=== PATIENT | male | born 1935 | race Caucasian/White ===

== ENCOUNTER 2017-08-16 11:04 | Inpatient (IN) | payer MEDICARE ==
[~2017-08-16] VITALS: Ht 157.5 cm; Wt 48.4 kg
[~2017-08-16 11:04] MED LIST: CLON0.5T PO; FURO40TA PO; ISOS60TA PO; LANTUS2P SQ; METF500T PO; METO100T9 PO; MULTTAB67 PO; OMEP40CA2 PO; SIMV40TA PO; TAMS0.4C4 PO
[2017-08-16 17:30] VITALS: BP 167/82; PULSE 92; RESP 20; TEMP 98; O2SAT 99
--- NOTE | 2017-08-16 18:07 | HHI.HP ---
HPI Service [facility] Hospitalists Primary Care Physician No Primary Care Physician Admission Diagnosis Diagnoses: Chief Complaint: Chest pain Dyspnea Travel History International Travel<30 Days: Yes Contact w/Intl Traveler <30 Da: Yes Name of Country Traveled to: [place] History of Present Illness Written by Ce Gonzalez PA-C acting as scribe for Dr. Bermudez on 08/16/17 at 18:07. This is an 81yo Tajik male with a known PMHX of known CAD, HTN, IDDM and previous CVA 6 mos ago who presents to [facility] with complaints of pressure like anterior chest pain and dyspnea x 1 day. He endorses associated nausea. He reports some chills yesterday but denies any cough or fever. Patient arrived here from [place] 2 days ago. He has a history of 3 vessel CAD diagnosed in 2007 and due to being a poor surgical candidate has been treated medically to date per 's report. He does not use oxygen at home. Patients also reports he's been losing weight despite having a good appetite. She does admit he is only able to eat soft foods due to ill fitting dentures. Patient denies any throat pain or difficulty with swallowing. Patient was hospitalized in [place] for unstable angina in January of this year. Per the patients , he did not undergo a cardiac catheterization. In the ED, patient has two elevated troponins 0.18 and 0.17. EKG revealed NSR with diffuse ST segment flattening. D Dimer slightly elevated at 0.84. CXR was concerning for PNA. Review of Systems Except as stated in HPI: all other systems reviewed are Neg Past Family Social History Past Medical History known hx of CAD treated with medical mgmt HTN DM, insulin dependent CVA 6 mos ago BPH GERD Past Surgical History Patient denies any previous surgeries Reported Medications Lantus Inj (Insulin Glargine) 1,000 Unit/10 Ml Vial 15 Units SQ HS Furosemide 40 Mg Tab 40 Mg PO DAILY Multiple Vitamin 1 Tab 1 Tab PO DAILY Tamsulosin (Tamsulosin HCl) 0.4 Mg Cap 0.4 Mg PO HS Simvastatin 40 Mg Tab 40 Mg PO HS Metoprolol Succinate ER 24 HR (Metoprolol Succinate) 100 Mg Tab 100 Mg PO HS Omeprazole 40 Mg Cap 40 Mg PO DAILY Metformin (Metformin HCl) 500 Mg Tab 500 Mg PO HS With a meal Isosorbide Mononitrate ER (Isosorbide Mononitrate) 60 Mg Tab 60 Mg PO DAILY Clonazepam 0.5 Mg Tab 0.5 Mg PO BID Allergies: Coded Allergies: Sulfa (Sulfonamide Antibiotics) (Verified Allergy, Severe, SWELLING, ) Active Ordered Medications Current Medications Medications (Trade) Dose Ordered Sig/Ta Route Start Time Stop Time Status Last Admin (KlonoPIN) 0.5 mg BID PO 08/16/17 21:00 UNV (Lantus Inj) 15 units HS SQ 08/16/17 21:00 UNV (Imdur) 60 mg DAILY PO 08/17/17 09:00 UNV (Flomax) 0.4 mg HS PO 08/16/17 21:00 UNV Non-Formulary Medication 100 mg HS PO 08/16/17 21:00 UNV Non-Formulary Medication 40 mg DAILY PO 08/17/17 09:00 UNV Non-Formulary Medication 40 mg HS PO 08/16/17 21:00 UNV Family History Both parents, CAD and DM Social History Patient denies any previous smoking history, alcohol consumption or illicit drug use. Physical Exam Vital Signs Vital Signs Date Time Temp Pulse Resp B/P (MAP) Pulse Ox O2 Delivery O2 Flow Rate FiO2 08/16/17 17:30 98.0 92 20 167/82 (110) 99 Physical Exam GENERAL: This is a thin frail elderly patient, in no apparent distress. Awake and alert. is at the bedside. SKIN: No rashes, ecchymoses or lesions. Cool and dry. HEAD: Atraumatic. Normocephalic. No temporal or scalp tenderness. EYES: Pupils equal round and reactive. Extraocular motions intact. No scleral icterus. No injection or drainage. ENT: Nose without bleeding, purulent drainage. Throat without erythema, tonsillar hypertrophy or exudate. Uvula midline. Airway patent. Absent dentition. NECK: Trachea midline. No JVD or lymphadenopathy. Supple, nontender, no meningeal signs. CARDIOVASCULAR: Regular rate and rhythm without murmurs, gallops, or rubs. RESPIRATORY: Diminished but clear to auscultation. Breath sounds equal bilaterally. No wheezes, rales, or rhonchi. GASTROINTESTINAL: Abdomen soft, non-tender, nondistended. No hepato-splenomegaly , or palpable masses. No guarding. MUSCULOSKELETAL: Extremities without clubbing, cyanosis, or edema. No joint tenderness, effusion, or edema noted. No calf tenderness. NEUROLOGICAL: Awake and alert. Able to move all extremities. Nonfocal. Normal speech. Caprini VTE Risk Assessment Caprini VTE Risk Assessment: Mod/High Risk (score >= 2) Caprini Risk Assessment Model Point Value = 1 Point Value = 2 Point Value = 3 Point Value = 5 Age 41-60 Minor surgery BMI > 25 kg/m2 Swollen legs Varicose veins or History of unexplained or recurrent spontaneous Oral contraceptives or hormone replacement Sepsis (< 1 month) Serious lung disease, including pneumonia (< 1 month) Abnormal pulmonary function Acute myocardial infarction Congestive heart failure (< 1 month) History of inflammatory bowel disease Medical patient at bed rest Age 61-74 Arthroscopic surgery Major open surgery (> 45 min) Laparoscopic surgery (> 45 min) Malignancy Confined to bed (> 72 hours) Immobilizing plaster cast Central venous access Age >= 75 History of VTE Family history of VTE Factor V Leiden Prothrombin [id number] Lupus anticoagulant Anticardiolipin antibodies Elevated serum homocysteine Heparin-induced thrombocytopenia Other congenital or acquired thrombophilia Stroke (< 1 month) Elective arthroplasty Hip, pelvis, or leg fracture Acute spinal cord injury (< 1 month) Prophylaxis Regimen Total Risk Factor Score Risk Level Prophylaxis Regimen 0-1 Low Early ambulation 2 Moderate Order ONE of the following: *Sequential Compression Device (SCD) *Heparin 5000 units SQ BID 3-4 Higher Order ONE of the following medications: *Heparin 5000 units SQ TID *Enoxaparin/Lovenox 40 mg SQ daily (WT < 150 kg, CrCl > 30 mL/min) *Enoxaparin/Lovenox 30 mg SQ daily (WT < 150 kg, CrCl > 10-29 mL/min) *Enoxaparin/Lovenox 30 mg SQ BID (WT < 150 kg, CrCl > 30 mL/min) AND/OR *Sequential Compression Device (SCD) 5 or more Highest Order ONE of the following medications: *Heparin 5000 units SQ TID (Preferred with Epidurals) *Enoxaparin/Lovenox 40 mg SQ daily (WT < 150 kg, CrCl > 30 mL/min) *Enoxaparin/Lovenox 30 mg SQ daily (WT < 150 kg, CrCl > 10-29 mL/min) *Enoxaparin/Lovenox 30 mg SQ BID (WT < 150 kg, CrCl > 30 mL/min) AND *Sequential Compression Device (SCD) Assessment and Plan Assessment and Plan 81yo Tajik male with a known PMHX of known CAD, HTN, IDDM and previous CVA 6 mos ago who presents to [facility] with complaints of pressure like anterior chest pain and dyspnea x 1 day. He endorses associated nausea. NSTEMI in patient with known CAD. Reportedly with 3 vessel disease but not a surgical candidate per History. - EKG personally reviewed showing NSR, diffuse ST segment flattening - Troponin 0.18 and 0.17 - Cycle cardiac enzymes and EKG - Consult Cardiology - continuous cardiac monitoring - ASA 325mg daily - Nitro SL prn chest pain - supplemental oxygen Hypertension - resume home dose of Isosorbide 60mg daily, Metoprolol 100mg po daily - hold Lasix for now, no e/o fluid overload on exam - monitor BP Dyspnea Suspect PNA - CXR personally reviewed showing left basilar consolidation possibly pneumonia - also concern for PE given recent travel, elevated D Dimer and hypoxia. Will order CTA for further evaluation and r/o PE. - Patient given Ceftriaxone and Azithromycin in the ED. Will continue. - supplemental oxygen - monitor respiratory status Weight loss - consult dynamic balancer set up worker - swallow evaluation (hx of CVA 6mos ago) Diabetes - hold home Metformin - resume home dose of Lantus 15u daily - accucheks - ISS - diabetic heart healthy diet HX of CVA 6 mos ago - continue ASA and statin daily BPH - resume home dose of Tamsulosin 0.4mg daily Dyslipidemia - resume home dose of statin therapy GERD - PPI DVT prophylaxis - Heparin sq This note was transcribed by siomara [Ce Gonzalez]. I, Dr. Rickey Bermudez personally performed the history, physical exam, and medical decision making; and confirmed the accuracy of the information in the transcribed note. Authenticated by Dr. Rickey Bermudez on 08/16/17 at 18:09. Discussed Condition With ED physician, patient, Physician Certification 2 Midnight Certification Type: Admission for Inpatient Services Order for Inpatient Services The services are ordered in accordance with Medicare regulations or non- Medicare payer requirements, as applicable. In the case of services not specified as inpatient-only, they are appropriately provided as inpatient services in accordance with the 2-midnight benchmark. Estimated LOS (days): 3 days is the estimated time the patient will need to remain in the hospital, assuming treatment plan goals are met and no additional complications. Post-Hospital Plan: Home Ce Gonzalez Aug 16, 2017 18:07 Rickey Bermudez MD Aug 16, 2017 18:09
[2017-08-16] MEDS ORDERED: SODIUM CHLORIDE 0.9% FLUSH 10 ML FLUSH IV FLUSH PRN (18:15)
[2017-08-16] MEDS ORDERED: SENNOSIDES 8.6 MG TAB PO PRN (18:15)
[2017-08-16] MEDS ORDERED: TEMAZEPAM 15 MG CAP PO PRN (18:15)
[2017-08-16] MEDS ORDERED: ACETAMINOPHEN 325 MG TAB PO PRN (18:15)
[2017-08-16] MEDS ORDERED: MAGNESIUM HYDROXIDE SUSP 30 ML CUP PO PRN (18:15)
[2017-08-16] MEDS ORDERED: BISACODYL 10 MG SUPP RECTAL PRN (18:15)
[2017-08-16] MEDS ORDERED: ONDANSETRON HCL 4 MG/2 ML VIAL IVP PRN (18:15)
[2017-08-16] MEDS ORDERED: NALOXONE HCL 0.4 MG/ML AMP IV PUSH PRN (18:15)
[2017-08-16] MEDS ORDERED: LACTULOSE SYRUP 20 GM/30 ML CUP PO PRN (18:15)
[2017-08-16] MEDS ORDERED: GLUCAGON 1 MG/ML VIAL OTHER PRN (18:45)
[2017-08-16] MEDS ORDERED: DEXTROSE 50% IN WATER 50 ML SYRINGE IV PUSH PRN (18:45)
[2017-08-16] MEDS: HEPARIN SODIUM - SQ 10,000 UNITS/ML VIAL SQ SCH (18:55)
[2017-08-16 20:00] VITALS: BP 157/88; PULSE 100; PULSE 97; RESP 18; TEMP 97.2; O2SAT 95
[2017-08-16] MEDS: NITROGLYCERIN 0.4 MG SL 25 TABS/BTL SL PRN (20:33)
[2017-08-16] MEDS: clonazePAM 0.5 MG TAB PO SCH (20:33)
[2017-08-16] MEDS: METOPROLOL SUCCINATE 50 MG EXTENDED RELEASE TAB PO SCH (20:34)
[2017-08-16 20:35] VITALS: BP 157/88; PULSE 108; RESP 20; TEMP 97.2; O2SAT 95
[2017-08-16] MEDS: PRAVASTATIN SOD 80 MG TAB PO SCH (20:35)
[2017-08-16] MEDS: TAMSULOSIN HCL 0.4 MG CAP PO SCH (20:35)
[2017-08-16] MEDS: SODIUM CHLORIDE 0.9% FLUSH 10 ML FLUSH IV FLUSH SCH (20:35)
[2017-08-16] MEDS: INSULIN ASPART SUPPLEMENTAL SCALE SQ SCH (20:37)
[2017-08-16] MEDS: INSULIN DETEMIR 100 UNITS/ML VIAL SQ SCH (20:37)
[2017-08-16 20:43] VITALS: BP 157/73; PULSE 92; RESP 20
[2017-08-16] MEDS ORDERED: INSULIN GLARGINE 1,000 UNITS/10 ML VIAL SQ SCH (21:00)
[2017-08-17] VITALS (8 sets, daily range): BP systolic 99–159; BP diastolic 56–75; PULSE 63–87; RESP 18–20; TEMP 97.5–97.8; O2SAT 93–100
[2017-08-17] MEDS: HEPARIN SODIUM - SQ 10,000 UNITS/ML VIAL SQ SCH ×3 (04:25→18:12)
[2017-08-17 07:56] LABS: AUTOMATED NEUTROPHIL # 5.4 TH/MM3 (1.8-7.7); BASOPHIL % 0.1 % (0.0-2.0); EOSINOPHIL % 0.1 % (0.0-4.0); HEMO FLAGS DIFF FINAL; LYMPH % 9.7 % (9.0-44.0); LYMPHOCYTE # 0.6 TH/MM3 (1.0-4.8); MEAN CELL VOLUME 85.1 FL (80.0-100.0); MEAN CORPUSCULAR HEMOGLOBIN 27.3 PG (27.0-34.0); MEAN CORPUSCULAR HGB CONC 32.1 % (32.0-36.0); MONO % 9.2 % (0.0-8.0); NEUT % 80.9 % (16.0-70.0); PLATELET COUNT 127 TH/MM3 (150-450); RED BLOOD COUNT 5.17 MIL/MM3 (4.50-5.90); WHITE BLOOD COUNT 6.6 TH/MM3 (4.0-11.0)
[2017-08-17] MEDS: INSULIN ASPART SUPPLEMENTAL SCALE SQ SCH ×4 (08:00→21:01)
[2017-08-17] MEDS: PANTOPRAZOLE SOD 40 MG DELAYED RELEASE TAB PO SCH (08:15)
[2017-08-17] MEDS: AZITHROMYCIN 250 MG TAB PO SCH (08:15)
[2017-08-17] MEDS: clonazePAM 0.5 MG TAB PO SCH ×2 (08:15→20:59)
[2017-08-17] MEDS: cefTRIAXone INJ 1,000 MG in SODIUM CHLORIDE 0.9% INJ 100 ML IV SCH (08:15)
[2017-08-17] MEDS: ISOSORBIDE MONONITRATE 60 MG TAB PO SCH (08:15)
[2017-08-17] MEDS: SODIUM CHLORIDE 0.9% FLUSH 10 ML FLUSH IV FLUSH SCH ×2 (08:15→21:00)
[2017-08-17 08:16] LABS: BICARBONATE 44.3 MEQ/L (21.0-32.0); POTASSIUM 3.8 MEQ/L (3.5-5.1)
[2017-08-17] MEDS: NITROGLYCERIN 0.4 MG SL 25 TABS/BTL SL PRN (08:27)
[2017-08-17] MEDS: SODIUM CHLOR 0.9% 1000 ML INJ 1,000 ML IV SCH (10:45)
[2017-08-17] MEDS ORDERED: SODIUM CHLOR 0.9% 250 ML INJ 250 ML IV ONE (10:45)
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
[2017-08-17 12:14] LABS: INDIRECT BILIRUBIN 0.3 MG/DL (0.0-0.8); TOTAL BILIRUBIN ADULT 0.5 MG/DL (0.2-1.0)
[2017-08-17 12:32] LABS: BLOOD GAS BASE EXCESS 16.7 mmol/L (-2-2); BLOOD GAS CARBOXYHEMOGLOBIN 1.2 % (0-4); BLOOD GAS HCO3 43 mmol/L (22-26); BLOOD GAS METHEMOGLOBIN 0.6 % (0-2); BLOOD GAS O2 HGB SATURATION 97 % (90-100); BLOOD GAS OXYGEN CONTENT 18.1 Vol % (12.0-20.0); BLOOD GAS PCO2 86 mmHg (38-42); BLOOD GAS PO2 146 mmHG (61-120); BLOOD GAS TOTAL HGB 13.1 G/DL (12.0-16.0); TEMP CORR TO 98.6
[2017-08-17 12:33] LABS: CRITICAL VALUE YES; DRAW SITE RT RADIAL; LITER FLOW 2 L/M; NUMBER OF ARTERIAL PUNCTURES 1; OXYGEN DEVICE NASAL CANNULA; STAT NO; ULNAR PULSE PRESENT
--- NOTE | 2017-08-17 15:08 | HHI.PR ---
Subjective Remarks Patient was more lethargic earlier, he is more awake this afternoon. He denies chest pain. Blood gas shows CO2 retention and high PO2. There was report that he decline CT pulmonary angiogram.DW patient and his . He is agreeable. Objective Vitals Vital Signs Date Time Temp Pulse Resp B/P (MAP) Pulse Ox O2 Delivery O2 Flow Rate FiO2 08/17/17 12:45 97.7 63 18 99/56 (70) 100 08/17/17 08:12 97.5 67 20 119/66 (83) 100 08/17/17 08:00 2.00 08/17/17 08:00 68 08/17/17 04:00 97.5 70 18 152/75 (100) 99 08/17/17 04:00 Nasal Cannula 2.00 08/17/17 00:00 97.7 87 18 159/73 (101) 94 08/17/17 00:00 Nasal Cannula 2.00 08/16/17 20:43 92 20 157/73 (101) 08/16/17 20:35 97.2 108 20 157/88 (111) 95 08/16/17 20:00 Nasal Cannula 2.00 08/16/17 20:00 97.2 100 18 157/88 (111) 95 08/16/17 20:00 97 08/16/17 17:30 98.0 92 20 167/82 (110) 99 Result Diagram: 08/17/1771908/17/17719 Objective Remarks GENERAL: Elderly and frail male in no acute distress. CARDIOVASCULAR: Normal rate and regular rhythm without murmurs, gallops, or rubs. RESPIRATORY: Respiratory effort is fair. There is markedly diminished breath sounds bilaterally at the bases. No wheezing or rhonchi noted. GASTROINTESTINAL: Abdomen soft, non-tender, non-distended. Normal active bowel sounds MUSCULOSKELETAL: Extremities without cyanosis, or edema. NEURO: Awake and alert. Moves all ext x4 PSYCH: Appropriate mood and affect. A/P Assessment and Plan 81yo [place]ian male with a known PMHX of known CAD, HTN, IDDM and previous CVA 6 mos ago who presents to [facility] with complaints of pressure like anterior chest pain and dyspnea x 1 day. He endorses associated nausea. NSTEMI in patient with known CAD. Reportedly with 3 vessel disease but not a surgical candidate per History. -Patient evaluated by cardiology who advised continuing with medical management. - continuous cardiac monitoring - ASA 325mg daily - Nitro SL prn chest pain - supplemental oxygen Respiratory acidosis with some compensation: - I suspect this is related to hypoventilation. Patient does have underlying pneumonia that can also impaired gas exchange. It is unclear if he has underlying lung disease. He has been on oxygen which can also depress his respiratory drive. - Continue to monitor closely. Wean off oxygen. CT pulmonary angiogram to be done today to better evaluate the lung parenchyma and rule out PE. Hypertension - resume home dose of Isosorbide 60mg daily, Metoprolol 100mg po daily - hold Lasix for now, no e/o fluid overload on exam - monitor BP Dyspnea Suspect PNA - CXR personally reviewed showing left basilar consolidation possibly pneumonia - also concern for PE given recent travel, elevated D Dimer and hypoxia. CTA for further evaluation and r/o PE. - Patient given Ceftriaxone and Azithromycin in the ED. Will continue. - supplemental oxygen - monitor respiratory status Weight loss - consult research administrator - swallow evaluation (hx of CVA 6mos ago) Diabetes - hold home Metformin - resume home dose of Lantus 15u daily - accucheks - ISS - diabetic heart healthy diet HX of CVA 6 mos ago - continue ASA and statin daily BPH - resume home dose of Tamsulosin 0.4mg daily Dyslipidemia - resume home dose of statin therapy GERD - PPI DVT prophylaxis - Heparin sq Rickey Bermudez MD Aug 17, 2017 15:08
[2017-08-17] MEDS: PRAVASTATIN SOD 80 MG TAB PO SCH (21:00)
[2017-08-17] MEDS: TAMSULOSIN HCL 0.4 MG CAP PO SCH (21:00)
[2017-08-17] MEDS: METOPROLOL SUCCINATE 50 MG EXTENDED RELEASE TAB PO SCH (21:00)
[2017-08-17] MEDS: INSULIN DETEMIR 100 UNITS/ML VIAL SQ SCH (21:01)
[2017-08-18] VITALS (9 sets, daily range): BP systolic 114–138; BP diastolic 57–65; PULSE 60–74; RESP 14–18; TEMP 96.2–98.4; O2SAT 95–100
[2017-08-18] MEDS: SODIUM CHLOR 0.9% 1000 ML INJ 1,000 ML IV SCH (02:09)
[2017-08-18] MEDS: HEPARIN SODIUM - SQ 10,000 UNITS/ML VIAL SQ SCH ×3 (03:49→19:00)
[2017-08-18] MEDS: INSULIN ASPART SUPPLEMENTAL SCALE SQ SCH ×4 (08:00→20:27)
[2017-08-18] MEDS: SODIUM CHLORIDE 0.9% FLUSH 10 ML FLUSH IV FLUSH SCH ×2 (09:00→20:31)
[2017-08-18] MEDS: PANTOPRAZOLE SOD 40 MG DELAYED RELEASE TAB PO SCH (10:01)
[2017-08-18] MEDS: ASPIRIN 325 MG TAB PO SCH (10:01)
[2017-08-18] MEDS: AZITHROMYCIN 250 MG TAB PO SCH (10:01)
[2017-08-18] MEDS: ISOSORBIDE MONONITRATE 60 MG TAB PO SCH (10:01)
[2017-08-18] MEDS: cefTRIAXone INJ 1,000 MG in SODIUM CHLORIDE 0.9% INJ 100 ML IV SCH (10:03)
[2017-08-18] MEDS: clonazePAM 0.5 MG TAB PO SCH (10:03)
[2017-08-18] MEDS: LACTOBACILLUS ACIDOPHILUS TAB PO SCH ×2 (10:45→20:44)
--- NOTE | 2017-08-18 10:50 | HHI.PR ---
Subjective Remarks Follow up on patient with dyspnea, chest pain. Patient seen and examined. is at the bedside. CTA still has not been done. Neither has UA. Patient states he is about the same. He reports persistent nausea. Now having some lower abdominal discomfort. States he feels like he will have BM soon. Denies any chest pain. Denies any fever or chills. Has not been up with PT. ST completed swallow eval and rec puree diet with thin liquids. Discussed with nursing staff who reported patient with oxygen saturation of 77% off of NC. She will obtain UA sample and contact radiology to complete CTA. Objective Vitals Vital Signs Date Time Temp Pulse Resp B/P (MAP) Pulse Ox O2 Delivery O2 Flow Rate FiO2 08/18/17 08:00 96.2 62 17 114/57 (76) 100 08/18/17 07:26 95 Nasal Cannula 2.00 08/18/17 04:00 97.5 60 16 124/60 (81) 100 08/18/17 04:00 Nasal Cannula 2.00 08/18/17 03:49 Room Air 08/18/17 00:00 97.2 60 14 116/58 (77) 100 08/18/17 00:00 Nasal Cannula 2.00 08/17/17 20:00 Nasal Cannula 2.00 08/17/17 20:00 97.8 68 20 114/57 (76) 99 08/17/17 20:00 66 08/17/17 18:07 93 Nasal Cannula 2.00 08/17/17 16:53 97.8 68 18 118/68 (85) 100 08/17/17 12:45 97.7 63 18 99/56 (70) 100 I/O 08/17/17 08/17/17 08/17/17 08/18/17 08/18/17 08/18/17 07:00 15:00 23:00 07:00 15:00 23:00 Intake Total 500 ml Balance 500 ml Intake Oral 500 ml # Voids 2 4 4 # Bowel Movements 2 2 2 2 Result Diagram: 08/17/1771908/17/17719 Objective Remarks GENERAL: This is a thin frail elderly patient, in no apparent distress. Awake and alert. is at the bedside. SKIN: Cool and dry. HEAD: Atraumatic. Normocephalic. EYES: Extraocular motions intact. No scleral icterus. No injection or drainage. ENT: Nose without bleeding, purulent drainage. Airway patent. Absent dentition. NECK: Trachea midline. CARDIOVASCULAR: Regular rate and rhythm without murmurs, gallops, or rubs. RESPIRATORY: Markedly diminished BS. Minimal respiratory effort. No wheezes, rales, or rhonchi. GASTROINTESTINAL: Abdomen soft, nondistended. No hepato-splenomegaly, or palpable masses. No guarding. (+)mild tenderness to palpation of bilateral lower quadrants. MUSCULOSKELETAL: Extremities without clubbing, cyanosis, or edema. NEUROLOGICAL: Awake and alert. Able to move all extremities. Nonfocal. Medications and IVs Current Medications Medications (Trade) Dose Ordered Sig/Ta Route Start Time Stop Time Status Last Admin (KlonoPIN) 0.5 mg BID PO 08/16/17 21:00 08/17/17 08:15 (Imdur) 60 mg DAILY PO 08/17/17 09:00 08/18/17 10:01 (Flomax) 0.4 mg HS PO 08/16/17 21:00 08/17/17 21:00 (Toprol Xl) 100 mg HS PO 08/16/17 21:00 08/17/17 21:00 (Protonix) 40 mg DAILY PO 08/17/17 09:00 08/18/17 10:01 (Pravachol) 80 mg HS PO 08/16/17 21:00 08/17/17 21:00 (Aspirin) 325 mg DAILY PO 08/18/17 09:00 08/18/17 10:01 (Nitrostat Sl) 0.4 mg Q5M PRN SL 08/16/17 18:15 08/17/17 08:27 (NS Flush) 2 ml UNSCH PRN IV FLUSH 08/16/17 18:15 (NS Flush) 2 ml BID IV FLUSH 08/16/17 21:00 08/17/17 08:15 (Tylenol) 650 mg Q4H PRN PO 08/16/17 18:15 (Zofran Inj) 4 mg Q6H PRN IVP 08/16/17 18:15 08/17/17 08:15 (Restoril) 15 mg HS PRN PO 08/16/17 18:15 (Heparin Inj) 5,000 units Q8H SQ 08/16/17 19:00 08/18/17 03:49 (Narcan Inj) 0.4 mg UNSCH PRN IV PUSH 08/16/17 18:15 (Milk Of Magnesia Liq) 30 ml Q12H PRN PO 08/16/17 18:15 (Senokot) 17.2 mg Q12H PRN PO 08/16/17 18:15 (Dulcolax Supp) 10 mg DAILY PRN RECTAL 08/16/17 18:15 (Lactulose Liq) 30 ml DAILY PRN PO 08/16/17 18:15 (D50w (Syr) Inj) 50 ml UNSCH PRN IV PUSH 08/16/17 18:45 (Glucagon Inj) 1 mg UNSCH PRN OTHER 08/16/17 18:45 (NovoLOG SUPPLEMENTAL SCALE) 1 ACHS SLIDING SCALE SQ 08/16/17 21:00 08/17/17 21:01 Ceftriaxone Sodium 1000 mg/ Sodium Chloride 100 ml @ 200 mls/hr Q24H IV 08/17/17 09:00 08/18/17 10:03 (Zithromax) 250 mg DAILY PO 08/17/17 09:00 08/18/17 10:01 (Levemir Inj) 15 units HS SQ 08/16/17 21:00 08/17/17 21:01 Sodium Chloride 1,000 ml @ 75 mls/hr [id number] IV 08/17/17 10:45 08/18/17 15:18 08/18/17 02:09 A/P Assessment and Plan 81yo Turkish male with a known PMHX of known CAD, HTN, IDDM and previous CVA 6 mos ago who presents to [facility] with complaints of pressure like anterior chest pain and dyspnea x 1 day. He endorses associated nausea. NSTEMI in patient with known CAD. Reportedly with 3 vessel disease but not a surgical candidate per history. - Patient evaluated by cardiology who advised continuing with medical management. - continuous cardiac monitoring - ASA 325mg daily - Nitro SL prn chest pain - supplemental oxygen - PT eval/tx Respiratory acidosis with some compensation: - Suspect this is related to hypoventilation. Patient does have underlying pneumonia that can also impaired gas exchange. It is unclear if he has underlying lung disease. He has been on oxygen which can also depress his respiratory drive. - Continue to monitor closely. Wean off oxygen. CT pulmonary angiogram to be done today to better evaluate the lung parenchyma and rule out PE - confirmed with nurse she will contact radiology Nausea Lower abdominal pain - Obtain UA - (+)BM - Zofran prn Hypertension - continue home dose of Isosorbide 60mg daily, Metoprolol 100mg po daily - hold Lasix for now, no e/o fluid overload on exam - monitor BP Dyspnea Suspect PNA - CXR personally reviewed showing left basilar consolidation possibly pneumonia - also concern for PE given recent travel, elevated D Dimer and hypoxia. CTA for further evaluation and r/o PE. - Patient given Ceftriaxone and Azithromycin in the ED. Will continue. - supplemental oxygen - monitor respiratory status - BCX show no growth x 2 days Weight loss - Transportation Maintenance Worker consulted - swallow evaluation (hx of CVA 6mos ago) completed with recommendations for puree with thin liquids Diabetes - continue to hold home Metformin - BS 87 this am, hold Levemir 15u daily - accucheks - ISS - diabetic heart healthy diet HX of CVA 6 mos ago - continue ASA and statin daily BPH - continue home dose of Tamsulosin 0.4mg daily Dyslipidemia - continue home dose of statin therapy GERD - PPI DVT prophylaxis - Heparin sq Discussed with patient, , Dr. Bermudez and nursing staff Ce Gonzalez Aug 18, 2017 10:50
[2017-08-18] MEDS ORDERED: WALKER WHEELS/F1 MIS (13:34)
[2017-08-18] MEDS ORDERED: BEDSIDE COMMODE1 MI1 (13:34)
--- NOTE | 2017-08-18 13:35 | HHI.FF ---
Face to Face Verification Diagnosis: (1) Non-ST elevation MO (NSTEMI) (2) Physical deconditioning (3) Risk for falls (4) Coronary artery disease (5) Pneumonia Physical Therapy Order: Evaluate and Treat, Improve ambulation, Strength and gait training I have seen patient Wilberto Hernández on 08/18/17. My clinical findings support the need for the requested home health care services because: Ltd mobility - disease progression Patient has SOB Deconditioned w/ increased weakness Limited ability to care for self High risk of falls I certify that my clinical findings support that this patient is homebound because: Post-op weakness Unsteady gait/balance Unsafe to leave home unassisted Unable to use public transportation Poor cardiac reserve Ce Gonzalez Aug 18, 2017 13:35
[2017-08-18] MEDS ORDERED: IOHEXOL 350 MG/ML 10 ML VIAL (for RAD DIAG) IVCONTRAST ONE (15:32)
--- NOTE | 2017-08-18 15:43 | RADRPT ---
EXAM DATE/TIME: 08/18/2017 15:16 [place] COMPARISON: No previous studies available for comparison. INDICATIONS : Shortness of breath. IV CONTRAST: 65 cc Omnipaque 350 (iohexol) IV RADIATION DOSE: 11.76 CTDIvol (mGy) MEDICAL HISTORY : Congestive hearrt failure. Stroke Hypertension.diabetes SURGICAL HISTORY : None. ENCOUNTER: Initial ACUITY: 1 day PAIN SCALE: 5/10 LOCATION: substernal chest TECHNIQUE: Volumetric scanning of the chest was performed using a pulmonary embolism protocol MIP images were re constructed. Using automated exposure control and adjustment of the mA and/or kV according to patien t size, radiation dose was kept as low as reasonably achievable to obtain optimal diagnostic quality images. DICOM format image data is available electronically for review and comparison. Follow-up recommendations for detected pulmonary nodules are based at a minimum on nodule size and pa tient risk factors according to Fleischner Society Guidelines. FINDINGS: PULMONARY ARTERIES: No filling defects are seen in the pulmonary arteries through the segmental level. LUNGS: Mild airspace consolidation at the lung bases bilaterally. Peripheral linear configuration of opaciti es in the right middle lobe and left lower lobe consistent with scarring. PLEURAE: Small right pleural effusion and trace left pleural effusion. MEDIASTINUM: Small to moderate pericardial effusion. Moderate coronary artery calcifications. Heart is otherwise u nremarkable. MUSCULOSKELETAL: Within normal limits for patient age. MISCELLANEOUS: The visualized upper abdominal organs demonstrate no acute abnormality. CONCLUSION: 1. No evidence for pulmonary embolism through the segmental level. 2. Small right and trace left pleural effusions with associated compressive atelectasis at the lung b ases. 3. Small to moderate sized pericardial effusion. 4. Minimal scarring in the right middle and left lower lobes. 5. Moderate coronary artery calcifications. Darrion Loya MD on August 18, 2017 at 15:37 Board Certified Radiologist. This report was verified electronically.
[2017-08-18] MEDS ORDERED: LORazepam 0.5 MG TAB PO PRN (16:15)
[2017-08-18 18:31] LABS: BICARBONATE 35.8 MEQ/L (21.0-32.0); POTASSIUM 4.5 MEQ/L (3.5-5.1)
--- NOTE | 2017-08-18 19:46 | EKG ---
Date Performed: 08/17/2017 Time Performed: 06:16:26 PTAGE: 81 years EKG: Sinus rhythm . Lateral ST-T changes may be due to myocardial ischemia Abnormal ECG NO PREVIOUS TRACING DOCTOR: Kosta Worley Interpretating Date/Time 08/18/2017 19:40:32
[2017-08-18] MEDS: TAMSULOSIN HCL 0.4 MG CAP PO SCH (20:28)
[2017-08-18] MEDS: PRAVASTATIN SOD 80 MG TAB PO SCH (20:29)
[2017-08-18] MEDS: METOPROLOL SUCCINATE 50 MG EXTENDED RELEASE TAB PO SCH (20:29)
[2017-08-19] VITALS (10 sets, daily range): BP systolic 111–162; BP diastolic 54–74; PULSE 63–76; RESP 14–22; TEMP 97.3–98.3; O2SAT 90–100
[2017-08-19] MEDS: HEPARIN SODIUM - SQ 10,000 UNITS/ML VIAL SQ SCH ×3 (03:33→17:58)
[2017-08-19] MEDS: INSULIN ASPART SUPPLEMENTAL SCALE SQ SCH ×4 (08:00→21:03)
[2017-08-19] MEDS: cefTRIAXone INJ 1,000 MG in SODIUM CHLORIDE 0.9% INJ 100 ML IV SCH (09:31)
[2017-08-19] MEDS: PANTOPRAZOLE SOD 40 MG DELAYED RELEASE TAB PO SCH (09:31)
[2017-08-19] MEDS: SODIUM CHLORIDE 0.9% FLUSH 10 ML FLUSH IV FLUSH SCH ×2 (09:31→21:04)
[2017-08-19] MEDS: AZITHROMYCIN 250 MG TAB PO SCH (09:31)
[2017-08-19] MEDS: ISOSORBIDE MONONITRATE 60 MG TAB PO SCH (09:32)
[2017-08-19] MEDS: LACTOBACILLUS ACIDOPHILUS TAB PO SCH ×2 (09:32→21:00)
[2017-08-19] MEDS: ASPIRIN 325 MG TAB PO SCH (09:32)
[2017-08-19 10:31] LABS: POTASSIUM 3.8 MEQ/L (3.5-5.1)
--- NOTE | 2017-08-19 15:07 | PD.CARD.PN ---
Subjective Subjective Remarks Asked to see pt regarding pericardial effusion, he says he is feeling better, no complaints. Objective Medications Administered Medications Medications (Trade) Dose Ordered Sig/Ta Route PRN Reason Start Time Stop Time Status Last Admin Dose Admin Isosorbide Mononitrate (Imdur) 60 mg DAILY PO 08/17/17 09:00 08/19/17 09:32 Tamsulosin HCl (Flomax) 0.4 mg HS PO 08/16/17 21:00 08/18/17 20:28 Metoprolol Succinate (Toprol Xl) 100 mg HS PO 08/16/17 21:00 08/18/17 20:29 Pantoprazole Sodium (Protonix) 40 mg DAILY PO 08/17/17 09:00 08/19/17 09:31 Pravastatin Sodium (Pravachol) 80 mg HS PO 08/16/17 21:00 08/18/17 20:29 Aspirin (Aspirin) 325 mg DAILY PO 08/18/17 09:00 08/19/17 09:32 Nitroglycerin (Nitrostat Sl) 0.4 mg Q5M PRN SL X 3 doses for chest pain 08/16/17 18:15 08/17/17 08:27 Sodium Chloride (NS Flush) 2 ml BID IV FLUSH 08/16/17 21:00 08/19/17 09:31 Ondansetron HCl (Zofran Inj) 4 mg Q6H PRN IVP NAUSEA OR VOMITING 08/16/17 18:15 08/17/17 08:15 Heparin Sodium (Porcine) (Heparin Inj) 5,000 units Q8H SQ 08/16/17 19:00 08/19/17 12:48 Insulin Aspart (NovoLOG SUPPLEMENTAL SCALE) 1 ACHS SLIDING SCALE SQ 08/16/17 21:00 08/19/17 12:48 Ceftriaxone Sodium 1000 mg/ Sodium Chloride 100 ml @ 200 mls/hr Q24H IV 08/17/17 09:00 08/19/17 09:31 Azithromycin (Zithromax) 250 mg DAILY PO 08/17/17 09:00 08/19/17 09:31 Insulin Detemir (Levemir Inj) 15 units HS SQ 08/16/17 21:00 Future Hold 08/17/17 21:01 Lactobacillus Acidophilus (Lactinex) 1 tab Q12HR PO 08/18/17 10:45 08/19/17 09:32 Lorazepam (Ativan) 0.5 mg Q8H PRN PO ANXIETY 08/18/17 16:15 08/18/17 20:29 Vital Signs / I&O Vital Signs Date Time Temp Pulse Resp B/P (MAP) Pulse Ox O2 Delivery O2 Flow Rate FiO2 08/19/17 12:00 98.1 75 22 129/58 (81) 90 08/19/17 08:00 Nasal Cannula 2.00 08/19/17 08:00 98.3 66 14 121/58 (79) 100 08/19/17 07:55 70 08/19/17 04:00 97.9 63 14 111/54 (73) 100 08/19/17 00:00 97.7 66 14 121/57 (78) 99 08/19/17 00:00 Nasal Cannula 2.00 08/18/17 20:32 97.4 74 18 128/59 (82) 100 08/18/17 20:19 72 08/18/17 20:00 Nasal Cannula 2.00 08/18/17 16:00 98.4 66 17 138/65 (89) 100 I/O 08/18/17 08/18/17 08/18/17 08/19/17 08/19/17 08/19/17 07:00 15:00 23:00 07:00 15:00 23:00 Intake Total 640 ml Output Total 400 ml 200 ml Balance 640 ml -400 ml -200 ml Intake Oral 640 ml Output Urine Total 400 ml 200 ml # Voids 3 2 2 # Bowel Movements 2 1 1 Physical Exam GENERAL: This is a well-nourished, well-developed patient, in no apparent distress. CARDIOVASCULAR: Regular rate and rhythm without murmurs, gallops, or rubs. RESPIRATORY: Clear to auscultation. Breath sounds equal bilaterally. No wheezes , rales, or rhonchi. GASTROINTESTINAL: Abdomen soft, non-tender, nondistended. Normal active bowel sounds MUSCULOSKELETAL: Extremities without clubbing, cyanosis, or edema. NEURO: Alert & Oriented x4 to person, place, time, situation. Moves all ext x4 Laboratory Laboratory Tests Test 08/18/17 16:56 08/19/17 08:55 Blood Urea Nitrogen 22 MG/DL 20 MG/DL Creatinine 0.75 MG/DL 0.76 MG/DL Random Glucose 117 MG/DL 110 MG/DL Calcium Level 8.3 MG/DL 8.7 MG/DL Sodium Level 135 MEQ/L 139 MEQ/L Potassium Level 4.5 MEQ/L 3.8 MEQ/L Chloride Level 96 MEQ/L 96 MEQ/L Carbon Dioxide Level 35.8 MEQ/L 40.0 MEQ/L Anion Gap 3 MEQ/L 3 MEQ/L Estimat Glomerular Filtration Rate 100 ML/MIN 99 ML/MIN Imaging Last Impressions CT Angiography 08/16/17 0000 Signed Impressions: Service Date/Time: Friday, August 18, 2017 15:16 - CONCLUSION: 1. No evidence for pulmonary embolism through the segmental level. 2. Small right and trace left pleural effusions with associated compressive atelectasis at the lung bases. 3. Small to moderate sized pericardial effusion. 4. Minimal scarring in the right middle and left lower lobes. 5. Moderate coronary artery calcifications. Darrion Loya MD Assessment and Plan Problem List: (1) Pericardial effusion ICD Codes: I31.3 - Pericardial effusion (noninflammatory) Status: Chronic Plan: I reviewed the patient's echo, there is a moderate sized chronic appearing effusion, no hemodynamic compromise; they do not want invasive cardiac procedures at this time, will see him in my office in 1-2 weeks for a f/ u echo to ensure no larger. (2) Troponin level elevated ICD Codes: R74.8 - Abnormal levels of other serum enzymes Assessment and Plan Please call with any further questions. Bao Pearl MD Aug 19, 2017 15:07
--- NOTE | 2017-08-19 16:23 | HHI.PR ---
Subjective Remarks Patient reports is feeling a little better. Still requiring oxygen. Discussed with his . No chest pain today. Objective Vitals Vital Signs Date Time Temp Pulse Resp B/P (MAP) Pulse Ox O2 Delivery O2 Flow Rate FiO2 08/19/17 12:00 98.1 75 22 129/58 (81) 90 08/19/17 08:00 Nasal Cannula 2.00 08/19/17 08:00 98.3 66 14 121/58 (79) 100 08/19/17 07:55 70 08/19/17 04:00 97.9 63 14 111/54 (73) 100 08/19/17 00:00 97.7 66 14 121/57 (78) 99 08/19/17 00:00 Nasal Cannula 2.00 08/18/17 20:32 97.4 74 18 128/59 (82) 100 08/18/17 20:19 72 08/18/17 20:00 Nasal Cannula 2.00 I/O 08/18/17 08/18/17 08/18/17 08/19/17 08/19/17 08/19/17 07:00 15:00 23:00 07:00 15:00 23:00 Intake Total 640 ml Output Total 400 ml 200 ml Balance 640 ml -400 ml -200 ml Intake Oral 640 ml Output Urine Total 400 ml 200 ml # Voids 3 2 2 # Bowel Movements 2 1 1 Result Diagram: 08/17/17 0720 08/19/17 0855 Objective Remarks GENERAL: Elderly and frail male in no acute distress. CARDIOVASCULAR: Normal rate and regular rhythm without murmurs, gallops, or rubs. RESPIRATORY: Respiratory effort is fair. There is markedly diminished breath sounds bilaterally at the bases. No wheezing or rhonchi noted. GASTROINTESTINAL: Abdomen soft, non-tender, non-distended. Normal active bowel sounds MUSCULOSKELETAL: Extremities without cyanosis, or edema. NEURO: Awake and alert. Moves all ext x4 PSYCH: Appropriate mood and affect. A/P Assessment and Plan 81yo male with a known PMHX of known CAD, HTN, IDDM and previous CVA 6 mos ago who presents to [facility] with complaints of pressure like anterior chest pain and dyspnea x 1 day. He endorses associated nausea. NSTEMI in patient with known CAD. Reportedly with 3 vessel disease but not a surgical candidate per History. Pericardial effusion -Patient evaluated by cardiology who advised continuing with medical management. - continuous cardiac monitoring - ASA 325mg daily - Nitro SL prn chest pain - supplemental oxygen - There is a pericardial effusion on CT and echocardiogram. Patient reevaluated by cardiology who advised outpatient follow-up and repeat echo outpatient. Patient is hemodynamically stable. Hypoxemia/Respiratory acidosis with some compensation: - I suspect this is related to hypoventilation. Patient does have underlying pneumonia that can also impaired gas exchange. It is unclear if he has underlying lung disease. He has been on oxygen which can also depress his respiratory drive. - Continue to monitor closely. Wean off oxygen. CT pulmonary angiogram to be done today to better evaluate the lung parenchyma and rule out PE. Hypertension - resume home dose of Isosorbide 60mg daily, Metoprolol 100mg po daily -Resume Lasix - monitor BP Suspect PNA - Patient given Ceftriaxone and Azithromycin in the ED. Will continue. - supplemental oxygen - monitor respiratory status Weight loss - Assistant Activities Director consulted - swallow evaluation (hx of CVA 6mos ago) completed with recommendations for puree with thin liquids Diabetes - continue to hold home Metformin -Continue to hold Levemir 15u daily - accucheks - ISS - diabetic heart healthy diet HX of CVA 6 mos ago - continue ASA and statin daily BPH - continue home dose of Tamsulosin 0.4mg daily Dyslipidemia - continue home dose of statin therapy GERD - PPI DVT prophylaxis - Heparin sq Discharge Planning Home oxygen walk test, probable discharge tomorrow with home health. Rickey Bermudez MD Aug 19, 2017 16:23
--- NOTE | 2017-08-19 17:42 | ECHRPT ---
Indication: pericardial effusion CONCLUSIONS The left ventricular systolic function is mildly reduced with an estimated ejection fraction in the range of 45- 50%. There is global hypokinesis with distinct regional wall motion abnormalities. [id number] mitral valve regurgitation. There is mild tricuspid valve regurgitation. There is a moderate pericardial effusion present. No hemodynamically significant echocardiographic features were observed (no pre-tamponade physiology). BP: / HR: Rhythm: MEASUREMENTS (Male / Female) Normal Values Technical Quality:Fair 2D ECHO LV Diastolic Diameter PLAX 3.9 cm 4.2 - 5.9 / 3.9 - 5.3 cm LV Systolic Diameter PLAX 3.0 cm IVS Diastolic Thickness 1.3 cm 0.6 - 1.0 / 0.6 - 0.9 cm LVPW Diastolic Thickness 0.6 cm 0.6 - 1.0 / 0.6 - 0.9 cm LV Relative Wall Thickness 0.5 RV Internal Dim ED PLAX 3.0 cm M-MODE Aortic Root Diameter MM 3.6 cm LA Systolic Diameter MM 3.1 cm LA Ao Ratio MM 0.9 AV Cusp Separation MM 1.6 cm DOPPLER Mitral E Point Velocity 43.4 cm/s Mitral A Point Velocity 40.5 cm/s Mitral E to A Ratio 1.1 LV E' Lateral Velocity 5.5 cm/s Mitral E to LV E' Lateral Ratio 7.9 LV E' Septal Velocity 5.1 cm/s Mitral E to LV E' Septal Ratio 8.6 TR Peak Velocity 299.0 cm/s TR Peak Gradient 35.8 mmHg Right Atrial Pressure 10.0 mmHg Pulmonary Artery Systolic Pressu 45.8 mmHg Right Ventricular Systolic Press 45.8 mmHg FINDINGS LEFT VENTRICLE Normal left ventricular size. The left ventricular systolic function is mildly reduced with an estimated ejection fraction in the range of 45- 50%. There is global hypokinesis with distinct regional wall motion abnormalities. RIGHT VENTRICLE Normal right ventricular size and systolic function. LEFT ATRIUM The left atrial size is normal. RIGHT ATRIUM The right atrial size is normal. ATRIAL SEPTUM Normal atrial septal thickness without atrial level shunting by limited color doppler interrogation. AORTA The aortic root and proximal ascending aorta are normal in size on limited imaging. MITRAL VALVE Structurally normal mitral valve. Igwoz-[id number] mitral valve regurgitation. AORTIC VALVE Trileaflet aortic valve. No aortic valve regurgitation. No aortic valve stenosis. TRICUSPID VALVE Structurally normal tricuspid valve. There is mild tricuspid valve regurgitation. PULMONARY VALVE No pulmonary valve regurgitation or stenosis. VESSELS The inferior vena cava is normal in size. PERICARDIUM There is a moderate pericardial effusion present. No hemodynamically significant echocardiographic features were observed (no pre-tamponade physiology). Dylon Garcia DO (Electronically Signed) Final Date:19 August 2017 17:41
[2017-08-19 20:45] LABS: AUTOMATED NEUTROPHIL # 4.3 TH/MM3 (1.8-7.7); BASOPHIL % 0.4 % (0.0-2.0); EOSINOPHIL # 0.1 TH/MM3 (0-0.4); EOSINOPHIL % 1.1 % (0.0-4.0); HEMATOCRIT 42.2 % (39.0-51.0); HEMO FLAGS DIFF FINAL; LYMPH % 19.6 % (9.0-44.0); LYMPHOCYTE # 1.2 TH/MM3 (1.0-4.8); MEAN CELL VOLUME 86.3 FL (80.0-100.0); MEAN CORPUSCULAR HEMOGLOBIN 27.6 PG (27.0-34.0); MEAN CORPUSCULAR HGB CONC 31.9 % (32.0-36.0); MONO % 9.9 % (0.0-8.0); PLATELET COUNT 108 TH/MM3 (150-450); RED BLOOD COUNT 4.89 MIL/MM3 (4.50-5.90); RED CELL DISTRIBUTION WIDTH 15.2 % (11.6-17.2); WHITE BLOOD COUNT 6.3 TH/MM3 (4.0-11.0)
[2017-08-19 21:00] LABS: BICARBONATE 43.8 MEQ/L (21.0-32.0); MAGNESIUM 2.1 MG/DL (1.5-2.5); POTASSIUM 4.1 MEQ/L (3.5-5.1)
[2017-08-19] MEDS: TAMSULOSIN HCL 0.4 MG CAP PO SCH (21:00)
[2017-08-19] MEDS: PRAVASTATIN SOD 80 MG TAB PO SCH (21:01)
[2017-08-19] MEDS: METOPROLOL SUCCINATE 50 MG EXTENDED RELEASE TAB PO SCH (21:01)
[2017-08-20] MEDS: HEPARIN SODIUM - SQ 10,000 UNITS/ML VIAL SQ SCH ×2 (01:42→12:38)
[2017-08-20 04:00] VITALS: BP 142/66; PULSE 68; RESP 20; TEMP 98.2; O2SAT 99
[2017-08-20 08:00] VITALS: BP 157/67; PULSE 67; RESP 18; TEMP 97.4; O2SAT 100
[2017-08-20] MEDS: INSULIN ASPART SUPPLEMENTAL SCALE SQ SCH ×3 (08:00→16:42)
[2017-08-20] MEDS ORDERED: OXYGENDME NAS.CANULA (09:09)
[2017-08-20] MEDS: ASPIRIN 325 MG TAB PO SCH (09:14)
[2017-08-20] MEDS: cefTRIAXone INJ 1,000 MG in SODIUM CHLORIDE 0.9% INJ 100 ML IV SCH (09:14)
[2017-08-20] MEDS: LACTOBACILLUS ACIDOPHILUS TAB PO SCH (09:15)
[2017-08-20] MEDS: AZITHROMYCIN 250 MG TAB PO SCH (09:15)
[2017-08-20] MEDS: ISOSORBIDE MONONITRATE 60 MG TAB PO SCH (09:15)
[2017-08-20] MEDS: PANTOPRAZOLE SOD 40 MG DELAYED RELEASE TAB PO SCH (09:15)
[2017-08-20] MEDS: SODIUM CHLORIDE 0.9% FLUSH 10 ML FLUSH IV FLUSH SCH (09:15)
[2017-08-20 11:02] VITALS: O2SAT 96
[2017-08-20 12:00] VITALS: BP 140/62; PULSE 67; RESP 18; TEMP 97.4; O2SAT 98
[2017-08-20] MEDS ORDERED: CEFU1TAB20 PO (14:35)
[2017-08-20] MEDS ORDERED: LEVEMIR SQ (14:54)
[2017-08-20] MEDS ORDERED: CLON0.5T PO (14:54)
--- NOTE | 2017-08-20 14:55 | HHI.PR ---
Subjective Remarks Patient reports is feeling okay today. Feels comfortable going home. Discussed discharge planning at length with the patient's . They are agreeable to having home health. Objective Vitals Vital Signs Date Time Temp Pulse Resp B/P (MAP) Pulse Ox O2 Delivery O2 Flow Rate FiO2 08/20/17 12:00 97.4 67 18 140/62 (88) 98 08/20/17 11:02 96 Nasal Cannula 2.00 08/20/17 08:00 97.4 67 18 157/67 (97) 100 08/20/17 04:00 98.2 68 20 142/66 (91) 99 08/19/17 21:20 Nasal Cannula 2.00 08/19/17 20:36 72 08/19/17 20:22 95 Nasal Cannula 3.00 08/19/17 19:35 97.9 76 20 162/74 (103) 08/19/17 16:20 97.4 73 17 149/64 (92) 100 08/19/17 16:00 97.3 75 22 156/65 (95) 98 I/O 08/19/17 08/19/17 08/19/17 08/20/17 08/20/17 08/20/17 07:00 15:00 23:00 07:00 15:00 23:00 Intake Total 480 ml Output Total 200 ml 100 ml Balance -200 ml 480 ml -100 ml Intake Oral 480 ml Output Urine Total 200 ml 100 ml # Voids 2 4 0 # Bowel Movements 1 1 Result Diagram: 08/19/17202208/19/172022 Objective Remarks GENERAL: Elderly and frail male in no acute distress. CARDIOVASCULAR: Normal rate and regular rhythm without murmurs, gallops, or rubs. RESPIRATORY: Respiratory effort is fair. There is markedly diminished breath sounds bilaterally at the bases. No wheezing or rhonchi noted. GASTROINTESTINAL: Abdomen soft, non-tender, non-distended. Normal active bowel sounds MUSCULOSKELETAL: Extremities without cyanosis, or edema. NEURO: Awake and alert. Moves all ext x4 PSYCH: Appropriate mood and affect. A/P Assessment and Plan 81yo male with a known PMHX of known CAD, HTN, IDDM and previous CVA 6 mos ago who presents to [facility] with complaints of pressure like anterior chest pain and dyspnea x 1 day. He endorses associated nausea. NSTEMI in patient with known CAD. Reportedly with 3 vessel disease but not a surgical candidate per History. Pericardial effusion -Patient evaluated by cardiology who advised continuing with medical management. - continuous cardiac monitoring - ASA 325mg daily - Nitro SL prn chest pain - supplemental oxygen - There is a pericardial effusion on CT and echocardiogram. Patient reevaluated by cardiology who advised outpatient follow-up and repeat echo outpatient. Patient is hemodynamically stable. - Patient remained stable from a cardiac standpoint and appeared to have reached maximal benefit from this hospitalization. He can be discharged home to follow up outpatient with cardiology. Hypoxemia/Respiratory acidosis with some compensation: -Patient does have underlying pneumonia that can also impaired gas exchange. It is unclear if he has underlying lung disease. - Patient requires oxygen and will be discharged home on oxygen. Hypertension - resume home dose of Isosorbide 60mg daily, Metoprolol 100mg po daily -Resume Lasix - monitor BP Suspect PNA - Patient given Ceftriaxone and Azithromycin in the ED. this was continued inpatient. He will be discharged on cefuroxime to complete the course of treatment. - supplemental oxygen Weight loss - Manager Of Financial consulted - swallow evaluation (hx of CVA 6mos ago) completed with recommendations for puree with thin liquids Diabetes -Resume metformin on discharge. Resume Levemir at a lower dose 5 mg daily at bedtime. - diabetic heart healthy diet HX of CVA 6 mos ago - continue ASA and statin daily BPH - continue home dose of Tamsulosin 0.4mg daily Dyslipidemia - continue home dose of statin therapy GERD - PPI Discharge Planning Discharge today with home health. Rickey Bermudez MD Aug 20, 2017 14:55
--- NOTE | 2017-08-20 14:55 | HHI.DS ---
Discharge Summary Admission Date Aug 16, 2017 at 17:19 Discharge Date: Aug 20, 2017 Admitting Diagnosis Pneumonia NSTEMI Elevated troponin (1) Pneumonia ICD Code: J18.9 - Pneumonia, unspecified organism Diagnosis: Principal Status: Acute (2) Non-ST elevation [place] (NSTEMI) ICD Code: I21.4 - Non-ST elevation (NSTEMI) myocardial infarction Diagnosis: Principal Status: Acute (3) Pericardial effusion ICD Code: I31.3 - Pericardial effusion (noninflammatory) Diagnosis: Secondary Status: Chronic (4) Troponin level elevated ICD Code: R74.8 - Abnormal levels of other serum enzymes Diagnosis: Principal Procedures Echocardiogram Brief History - From Admission This is an 81yo [place] male with a known PMHX of known CAD, HTN, IDDM and previous CVA 6 mos ago who presents to [facility] with complaints of pressure like anterior chest pain and dyspnea x 1 day. He endorses associated nausea. He reports some chills yesterday but denies any cough or fever. Patient arrived here from [place] 2 days ago. He has a history of 3 vessel CAD diagnosed in 2007 and due to being a poor surgical candidate has been treated medically to date per 's report. He does not use oxygen at home. Patients also reports he's been losing weight despite having a good appetite. She does admit he is only able to eat soft foods due to ill fitting dentures. Patient denies any throat pain or difficulty with swallowing. Patient was hospitalized in [place] for unstable angina in January of this year. Per the patients , he did not undergo a cardiac catheterization. In the ED, patient has two elevated troponins 0.18 and 0.17. EKG revealed NSR with diffuse ST segment flattening. D Dimer slightly elevated at 0.84. CXR was concerning for PNA. CBC/BMP: 08/19/17202208/19/172022 Significant Findings Laboratory Tests Test 08/18/17 16:56 08/19/17 08:55 08/19/17 20:23 Blood Urea Nitrogen 22 MG/DL (7-18) 20 MG/DL (7-18) 22 MG/DL (7-18) Random Glucose 117 MG/DL (74-106) 110 MG/DL (74-106) 165 MG/DL (74-106) Calcium Level 8.3 MG/DL (8.5-10.1) Sodium Level 135 MEQ/L (136-145) Chloride Level 96 MEQ/L (98-107) 96 MEQ/L (98-107) 94 MEQ/L (98-107) Carbon Dioxide Level 35.8 MEQ/L (21.0-32.0) 40.0 MEQ/L (21.0-32.0) 43.8 MEQ/L (21.0-32.0) Anion Gap 3 MEQ/L (5-15) 3 MEQ/L (5-15) 1 MEQ/L (5-15) Mean Corpuscular Hemoglobin Concent 31.9 % (32.0-36.0) Platelet Count 108 TH/MM3 (150-450) Monocytes (%) (Auto) 9.9 % (0.0-8.0) Estimat Glomerular Filtration Rate 71 ML/MIN (>89) Imaging Last Impressions CT Angiography 08/16/17 0000 Signed Impressions: Service Date/Time: Friday, August 18, 2017 15:16 - CONCLUSION: 1. No evidence for pulmonary embolism through the segmental level. 2. Small right and trace left pleural effusions with associated compressive atelectasis at the lung bases. 3. Small to moderate sized pericardial effusion. 4. Minimal scarring in the right middle and left lower lobes. 5. Moderate coronary artery calcifications. Darrion Loya MD PE at Discharge GENERAL: This is a thin frail elderly patient, in no apparent distress. Awake and alert. is at the bedside. SKIN: Cool and dry. HEAD: Atraumatic. Normocephalic. EYES: Extraocular motions intact. No scleral icterus. No injection or drainage. ENT: Nose without bleeding, purulent drainage. Airway patent. Absent dentition. NECK: Trachea midline. CARDIOVASCULAR: Regular rate and rhythm without murmurs, gallops, or rubs. RESPIRATORY: Markedly diminished BS. Minimal respiratory effort. No wheezes, rales, or rhonchi. GASTROINTESTINAL: Abdomen soft, nondistended. No hepato-splenomegaly, or palpable masses. No guarding. (+)mild tenderness to palpation of bilateral lower quadrants. MUSCULOSKELETAL: Extremities without clubbing, cyanosis, or edema. NEUROLOGICAL: Awake and alert. Able to move all extremities. Nonfocal. Hospital Course Pt was admitted on 08/16/17 for pneumonia and NSTEMI. Cardiology was consulted and noted pt's condition did not warrant surgical intervention and medical management was warranted. Cardiology was re-consulted for pericardial effusion which was felt to be stable. Pt is to followup with cardiology in 1-2 weeks for further evaluation. Pt's pneumonia was treated with IV azithromycin and Rocephin. Pt finished his azithromycin course and is being discharged on cefuroxime 500 mg twice daily for 5 days. Pt's IDDM was treated and upon discharge his home Levemir is to be decreased from 15 units at bedtime to 5 units. As pt is new to the region, he is being encouraged to establish care with a Primary Care Physician as well as a Beach Expert. Pt is being discharged to home with oxygen ordered. Pt Condition on Discharge: Stable Discharge Disposition: Discharge Home Discharge Time: <= 30 minutes Discharge Instructions DIET: Follow Instructions for: Diabetic Diet Speech Therapy-Diet Recommends: [place] Thickened Liquids Follow up Referrals: Cardiology - 2 Weeks with Bao Pearl MD New Medications: Bedside Commode (Bedside Commode) 1 Mis Mis EA .ROUTE DIRECTED, #1 Cefuroxime (Cefuroxime) 500 Mg Tab 500 MG PO BID for Infection for 5 Days, #10 TAB 0 Refills Take 1 pill two times a day by mouth for 5 days Oxygen (O2) (Oxygen (O2)) Device LITER EROS.CANULA CONTINUOUS for Prevent Hypoxemia, #2 Oxygen Concentrator Portable Gaseous 2 L/min via Nasal Canula Continuous For 99 months Walker with Front Wheels (Walker with Front Wheels) 1 Mis Mis EA .ROUTE DIRECTED, #1 0 Refills Insulin Detemir Inj (Levemir Inj) 1,000 unit/ 10 ML Vial 5 UNITS SQ HS for 30 Days, INJECTION Do not mix with any other Insulin. Changed Medications: Clonazepam (Clonazepam) 0.5 Mg Tab 0.5 MG PO BID PRN for ANXIETY AND/OR AGITATION, #20 TAB 0 Refills (Medication details modified) Continued Medications: Furosemide (Furosemide) 40 Mg Tab 40 MG PO DAILY, TAB 0 Refills Isosorbide Mononitrate ER (Isosorbide Mononitrate ER) 60 Mg Tab 60 MG PO DAILY for Prevent Chest Pain, TAB 0 Refills Metformin (Metformin) 500 Mg Tab 500 MG PO HS for Blood Sugar Management, #30 TAB 0 Refills With a meal Metoprolol Succinate ER 24 HR (Metoprolol Succinate ER 24 HR) 100 Mg Tab 100 MG PO HS, #30 TAB 0 Refills Multiple Vitamin (Multiple Vitamin) 1 Tab 1 TAB PO DAILY for Nutritional Supplement, TAB 0 Refills Omeprazole (Omeprazole) 40 Mg Cap 40 MG PO DAILY, CAP 0 Refills Simvastatin (Simvastatin) 40 Mg Tab 40 MG PO HS for Cholesterol Management, TAB 0 Refills Tamsulosin (Tamsulosin) 0.4 Mg Cap 0.4 MG PO HS for Manage Prostate Problems, CAP 0 Refills Elgin Gutiérrez Jr. Aug 20, 2017 14:55 Rickey Bermudez MD Aug 20, 2017 18:33
[2017-08-20 16:30] VITALS: BP 151/70; PULSE 70; RESP 19; TEMP 97.4; O2SAT 99
--- NOTE | 2017-08-20 17:44 | HHI.DCPOC ---
Discharge Care Plan Diagnosis: (1) Pneumonia (2) Non-ST elevation [place] (NSTEMI) (3) Pericardial effusion (4) Troponin level elevated Your Health Problems Are: Shortness of Breath Goals to Promote Your Health * To prevent worsening of your condition and complications * To maintain your health at the optimal level Directions to Meet Your Goals Take your medications as prescribed Follow your dietary instruction Follow activity as directed Keep your appointments as scheduled Take your immunizations and boosters as scheduled If your symptoms worsen call your PCP, if no PCP go to Urgent Care Center or Emergency Room Smoking is Dangerous to Your Health. Avoid second hand smoke Call the 24-hour hour crisis hotline for domestic abuse at Elgin Gutiérrez Jr. VIGNESH Aug 20, 2017 17:44
== END 2017-08-20 18:21 | disposition home or self-care (01) | DRG 280 ==
LOC: NEDDLT 17:08 → N04A 17:19
PROVIDERS: ADMIT Family Medicine; ATTEND Family Medicine
DX: I21.4 Non-ST elevation (NSTEMI) myocardial infarction (principal); J18.9 Pneumonia, unspecified organism; R64 Cachexia; E87.2 Acidosis; I31.3 Pericardial effusion (noninflammatory); Z68.1 Body mass index [BMI] 19.9 or less, adult; E11.9 Type 2 diabetes mellitus without complications; I10 Essential (primary) hypertension; I25.10 Atherosclerotic heart disease of native coronary artery without angina pectoris; N40.0 Benign prostatic hyperplasia without lower urinary tract symptoms; E78.5 Hyperlipidemia, unspecified; K21.9 Gastro-esophageal reflux disease without esophagitis; R09.02 Hypoxemia; Z79.82 Long term (current) use of aspirin; Z79.4 Long term (current) use of insulin; Z86.73 Personal history of transient ischemic attack (TIA), and cerebral infarction without residual deficits
CPT/HCPCS: 36600; 71010; 71275; 80048; 80053; 80076; 82550; 82805; 82948; 83735; 83880; 84484; 85025; 85379; 85610; 85730; 87040; 93005; 93306; 94150; 94620; 94664; 96365; 96367; J0456; J0696; J1644; J1815; J2405; J7030; J7050; Q9967